=== PATIENT | female | born 1965 | race Caucasian/White ===

== ENCOUNTER 2020-11-19 21:57 | Emergency (ER) | payer MEDICAID, SELFPAY ==
[~2020-11-19] VITALS: Ht 152.4 cm; Wt 68.0 kg
[2020-11-19 22:21] VITALS: BP_SYST 166
[2020-11-20] MEDS ORDERED: predniSONE 20 MG TABLET PO ONE (01:45)
[2020-11-20] MEDS ORDERED: IPRATROPIUM/ALBUTEROL SULFATE 3 ML AMPUL.NEB (DUONEB) INH ONE (01:45)
[2020-11-20] MEDS ORDERED: PRED20TA PO (02:37)
[2020-11-20 02:57] VITALS: BP_SYST 145
== END 2020-11-20 02:57 | disposition home or self-care (01) ==
LOC: SED 21:57
DX: J98.01 Acute bronchospasm (principal); Z79.899 Other long term (current) drug therapy; Z20.822 Contact with and (suspected) exposure to COVID-19
CPT/HCPCS: 71045; 87426; 94640; 99284; J7512; 36415

== ENCOUNTER 2021-01-09 00:04 | Emergency (ER) | payer MEDICAID, SELFPAY ==
[~2021-01-09] VITALS: Ht 152.4 cm; Wt 65.8 kg
[~2021-01-09 00:04] MED LIST: PRED20TA PO
[2021-01-09 00:29] VITALS: BP_SYST 162
--- NOTE | 2021-01-09 00:38 | NUR ---
Patient to ER bed 1 to gown for evaluation. Side rails up.
--- NOTE | 2021-01-09 00:39 | NUR ---
PATIENT AAOX4 AND AMBULATORY FROM HOME C/O COUGH SINCE MAY. PATIENT WAS HERE LAST TIME FOR SAME ISSUE. DENIES ANY SOB OR CP. VSS.
--- NOTE | 2021-01-09 00:40 | NUR ---
MEDICATION PREDNISONE ADMINISTERED AND PT TOLERATED WELL.
--- NOTE | 2021-01-09 00:44 | NUR ---
RESPIRATORY AT BEDSIDE TO ADMINISTER BREATHING TX.
[2021-01-09] MEDS ORDERED: predniSONE 20 MG TABLET PO ONE (00:45)
[2021-01-09] MEDS ORDERED: IPRATROPIUM/ALBUTEROL SULFATE 3 ML AMPUL.NEB (DUONEB) INH ONE ×2 (00:45→01:15)
--- NOTE | 2021-01-09 01:13 | NUR ---
DR. BABB AT BEDSIDE FOR EVALUATION.
--- NOTE | 2021-01-09 01:25 | NUR ---
COVID SWAB COLLECTED AND SENT TO LAB FOR ANALYSIS.
--- NOTE | 2021-01-09 01:28 | NUR ---
RESPIRATORY THERAPY AT [facility] ADMINISTERING 2ND BREATHING TX.
--- NOTE | 2021-01-09 01:35 | NUR ---
PORTABLE XRAY DONE AT BEDSIDE.
--- NOTE | 2021-01-09 03:00 | NUR ---
Patient resting quietly. No acute distress noted. Vital signs within normal range.
[2021-01-09 03:10] LABS: BASOPHILS # (AUTO) 0.1 K/uL (0.0-0.2); EOSINOPHILS # (AUTO) 0.4 K/uL (0.0-0.4); EOSINOPHILS % (AUTO) 3.4 % (0.0-4.0); HEMATOCRIT 43.2 % (36-48); HEMOGLOBIN 14.7 g/dL (12.0-16.0); LYMPHOCYTES # (AUTO) 1.8 K/uL (1.0-5.5); LYMPHOCYTES % (AUTO) 15.8 % (20.5-51.5); MEAN CORPUSCULAR HEMOGLOBIN 30 pg (27-31); MEAN CORPUSCULAR HGB CONC 34 % (32-36); MEAN CORPUSCULAR VOLUME 88 fL (79.0-98.0); MONOCYTES # (AUTO) 0.3 K/uL (0.0-1.0); MONOCYTES % (AUTO) 2.7 % (1.7-9.3); NEUTROPHILS # (AUTO) 8.7 K/uL (1.8-7.7); NEUTROPHILS % (AUTO) 77.1 % (40.0-70.0); PLATELET COUNT (AUTO) 250 K/uL (130-430); RED BLOOD CELL COUNT(AUTO) 4.92 MIL/uL (4.2-6.2); RED CELL DISTRIBUTION WIDTH 12.3 % (9.0-15.0); WHITE BLOOD COUNT (AUTO) 11.3 K/uL (4.8-10.8)
[2021-01-09 03:18] LABS: CALCIUM 9.2 mg/dL (8.4-11.0); CREATININE 0.75 mg/dL (0.55-1.30); POTASSIUM 3.1 mmol/L (3.5-5.1)
[2021-01-09 03:24] LABS: TOTAL BILIRUBIN 0.3 mg/dL (0.0-1.0)
[2021-01-09] MEDS ORDERED: POTASSIUM CHLORIDE 20 MEQ TAB.PRT.SR PO ONE (03:30)
[2021-01-09] MEDS ORDERED: ALBMDI INH (03:36)
[2021-01-09] MEDS ORDERED: PRED20TA PO (03:36)
--- NOTE | 2021-01-09 03:45 | NUR ---
Note [email or web address] in EDM - 01/09/21 at 0353 by [email or web address] PATIENT ALERT AND AWAKE. C/O ABDOMINAL PAIN, +N/V X 5 DAYS TONIGHT. HISTORY OF CONSTIPATION. PT GRIMICING AND HOLDING BELLY D/T PAIN. MOTHER STATED THIS HAS HAPPENED BEFORE D/T CONSTIPATION. VSS.
--- NOTE | 2021-01-09 03:51 | NUR ---
MEDICATION ADMINISTERED ORDERED.
[2021-01-09 04:13] VITALS: BP_SYST 162
--- NOTE | 2021-01-09 04:14 | NUR ---
Patient given written and verbal discharge instructions and verbalizes understanding. DR. HOLLEY PAL MD discussed with patient the results and treatment provided. Patient in stable condition. ID arm band removed. Rx of PREDNISONE, VENTOLIN given. Patient educated on pain management and to follow up with PMD. Pain Scale 0/10. Opportunity for questions provided and answered. Medication side effect fact sheet provided.
== END 2021-01-09 04:14 | disposition home or self-care (01) ==
LOC: SED 00:04
DX: J98.01 Acute bronchospasm (principal); Z20.822 Contact with and (suspected) exposure to COVID-19; Z79.899 Other long term (current) drug therapy
CPT/HCPCS: 36415; 71045; 80053; 83880; 84484; 85025; 85379; 87426; 93005; 94640; 99285; J7512

== ENCOUNTER 2021-07-12 23:50 | Emergency (ER) | payer MEDICAID, SELFPAY ==
[~2021-07-12] VITALS: Ht 165.1 cm; Wt 68.0 kg
[~2021-07-12 23:50] MED LIST changes: +ALBMDI INH
[2021-07-12 23:57] VITALS: BP_SYST 162
[2021-07-13] MEDS ORDERED: IPRATROPIUM/ALBUTEROL SULFATE 3 ML AMPUL.NEB (DUONEB) INH ONE (00:15)
[2021-07-13] MEDS ORDERED: predniSONE 20 MG TABLET PO ONE (00:15)
[2021-07-13 00:59] LABS: BASOPHILS # (AUTO) 0.3 K/uL (0.0-0.2); BASOPHILS % (AUTO) 3.1 % (0.0-2.0); EOSINOPHILS # (AUTO) 0.5 K/uL (0.0-0.4); EOSINOPHILS % (AUTO) 5.7 % (0.0-4.0); HEMATOCRIT 41.2 % (36-48); HEMOGLOBIN 14.1 g/dL (12.0-16.0); LYMPHOCYTES # (AUTO) 3.2 K/uL (1.0-5.5); LYMPHOCYTES % (AUTO) 34.3 % (20.5-51.5); MEAN CORPUSCULAR HEMOGLOBIN 29 pg (27-31); MEAN CORPUSCULAR HGB CONC 34 % (32-36); MEAN CORPUSCULAR VOLUME 86 fL (79.0-98.0); MONOCYTES # (AUTO) 0.5 K/uL (0.0-1.0); MONOCYTES % (AUTO) 5.2 % (1.7-9.3); NEUTROPHILS # (AUTO) 4.8 K/uL (1.8-7.7); NEUTROPHILS % (AUTO) 51.7 % (40.0-70.0); PLATELET COUNT (AUTO) 240 K/uL (130-430); RED BLOOD CELL COUNT(AUTO) 4.82 MIL/uL (4.2-6.2); WHITE BLOOD COUNT (AUTO) 9.2 K/uL (4.8-10.8)
[2021-07-13 01:00] LABS: CALCIUM 9.4 mg/dL (8.4-11.0); CREATININE 0.59 mg/dL (0.55-1.30); POTASSIUM 3.1 mmol/L (3.5-5.1)
[2021-07-13 01:08] LABS: ALBUMIN 3.9 g/dL (3.4-4.8); TOTAL BILIRUBIN 0.2 mg/dL (0.0-1.0)
[2021-07-13] MEDS ORDERED: PRED20TA PO (01:29)
[2021-07-13 01:45] VITALS: BP_SYST 130
== END 2021-07-13 01:45 | disposition home or self-care (01) ==
LOC: SED 23:50
DX: R06.2 Wheezing (principal); R06.02 Shortness of breath; F12.90 Cannabis use, unspecified, uncomplicated
CPT/HCPCS: 36415; 71045; 80053; 84484; 85025; 93005; 94640; 99285; J7512

== ENCOUNTER 2021-07-25 17:28 | Emergency (ER) | payer MEDICAID, SELFPAY ==
[~2021-07-25] VITALS: Ht 149.9 cm; Wt 77.1 kg
[2021-07-25 17:45] VITALS: BP_SYST 144
[2021-07-25] MEDS ORDERED: MAG-AL HYDROX/SIMETH 30 ML UDC PO ONE (18:30)
[2021-07-25 18:57] LABS: BASOPHILS # (AUTO) 0.1 K/uL (0.0-0.2); BASOPHILS % (AUTO) 0.9 % (0.0-2.0); EOSINOPHILS # (AUTO) 0.2 K/uL (0.0-0.4); EOSINOPHILS % (AUTO) 1.8 % (0.0-4.0); HEMATOCRIT 40.6 % (36-48); HEMOGLOBIN 13.8 g/dL (12.0-16.0); LYMPHOCYTES % (AUTO) 28.8 % (20.5-51.5); MEAN CORPUSCULAR HEMOGLOBIN 30 pg (27-31); MEAN CORPUSCULAR HGB CONC 34 % (32-36); MEAN CORPUSCULAR VOLUME 87 fL (79.0-98.0); MONOCYTES # (AUTO) 0.5 K/uL (0.0-1.0); MONOCYTES % (AUTO) 4.9 % (1.7-9.3); NEUTROPHILS # (AUTO) 6.5 K/uL (1.8-7.7); NEUTROPHILS % (AUTO) 63.6 % (40.0-70.0); PLATELET COUNT (AUTO) 263 K/uL (130-430); RED BLOOD CELL COUNT(AUTO) 4.67 MIL/uL (4.2-6.2); RED CELL DISTRIBUTION WIDTH 13.2 % (9.0-15.0); WHITE BLOOD COUNT (AUTO) 10.3 K/uL (4.8-10.8)
[2021-07-25 19:05] LABS: ANION GAP 12 (5-15); CALCIUM 9.5 mg/dL (8.4-11.0); CHLORIDE 104 mmol/L (98-107); CREATININE 0.95 mg/dL (0.55-1.30); GLUCOSE 94 mg/dL (70-99); POTASSIUM 3.5 mmol/L (3.5-5.1); SODIUM SERUM 143 mmol/L (136-145); UREA NITROGEN, BLOOD 27 mg/dL (8-21)
[2021-07-25 19:06] LABS: GFR AFRICAN AMERICAN 79 mL/min (>90)
[2021-07-25 19:19] LABS: ALANINE AMINOTRANSFERASE 49 U/L (12-78); ALBUMIN 3.8 g/dL (3.4-4.8); ASPARTATE AMINOTRANSFERASE 22 U/L (10-37); LIPASE 241 U/L (73-393); TOTAL BILIRUBIN 0.3 mg/dL (0.0-1.0)
[2021-07-25 19:50] VITALS: BP_SYST 151
[2021-07-25] MEDS ORDERED: MORPHINE 4 MG INJ. 4 MG/ML VIAL IVP ONE (20:00)
[2021-07-25] MEDS ORDERED: IBUPROFEN 800 MG TABLET ONE (20:09)
[2021-07-25] MEDS ORDERED: IBUPROFEN 800 MG TABLET PO ONE (20:15)
== END 2021-07-25 20:15 | disposition home or self-care (01) ==
LOC: SED 17:28
DX: K21.9 Gastro-esophageal reflux disease without esophagitis (principal)
CPT/HCPCS: 36415; 71045; 80053; 83690; 84484; 85025; 93005; 99285

== ENCOUNTER 2021-08-05 00:26 | Emergency (ER) | payer MEDICAID ==
[~2021-08-05] VITALS: Ht 152.4 cm; Wt 68.0 kg
[2021-08-05 01:29] VITALS: BP_SYST 121
--- NOTE | 2021-08-05 01:29 | NUR ---
Patient triaged and placed in waiting room. VS checked and patient appears in no acute distress at this time. Awaiting available bed, and MD notified of need for MSE.
--- NOTE | 2021-08-05 02:00 | NUR ---
Patient left without being seen. No further treatment provided. ER MD aware
== END 2021-08-05 02:00 | disposition left against medical advice (07) ==
LOC: SED 00:26
DX: R05.9 Cough, unspecified (principal); Z53.21 Procedure and treatment not carried out due to patient leaving prior to being seen by health care provider